=== PATIENT | female | born 1980 | race African-American/Black ===

== ENCOUNTER 2017-02-05 21:03 | Emergency (ER) | payer SELFPAY ==
[~2017-02-05] VITALS: Ht 165.1 cm; Wt 113.6 kg
[2017-02-05 21:45] LABS: BASOPHILS % 1.3 % (0.0-2.0); DIFFERENTIAL COMMENT 0; EOSINOPHILS % 2.6 % (0.0-5.0); HEMATOCRIT. 31.7 % (36.0-48.0); LYMPHOCYTES % 38.4 % (20.0-50.0); MEAN CORPUSCULAR HEMOGLOBIN 24.7 pg (28.0-32.0); MEAN CORPUSCULAR HGB CONC 31.6 g/dL (31.0-37.0); MEAN CORPUSCULAR VOLUME 78.1 fL (81.0-99.0); MONOCYTES % 8.4 % (2.0-8.0); NEUTROPHILS % 49.3 % (40.0-76.0); PLATELET 423 x1000/uL (130-400); RED BLOOD CELL COUNT 4.06 mill/uL (4.2-5.4)
[2017-02-05 21:59] LABS: ALANINE AMINOTRANSFERASE 20 IU/L (13-61); ALBUMIN 3.5 g/dL (3.4-5.0); ANION GAP 13; CALCIUM 8.9 mg/dL (8.5-10.1); CARBON DIOXIDE 26 mEq/L (21-32); CHLORIDE 108 mEq/L (98-107); INDEX HEMOLYSI 1 (1-3); INDEX ICTERIC 1 (1-4); INDEX LIPEMIC 1 (1-3); UREA NITROGEN BLOOD 16 mg/dL (7-21); eGFR 56 mL/min (>60)
[2017-02-05] MEDS ORDERED: ACETAMINOPHEN 500MG TABLET PO ONE (23:15)
[2017-02-05 23:26] LABS: PROTHROMBIN TIME 10.6 sec
[2017-02-05 23:54] LABS: CLARITY URINE CLOUDY (CLEAR); COLOR URINE ORANGE (YELLOW); GLUCOSE URINE NEGATIVE (NEGATIVE); KETONES URINE NEGATIVE (NEGATIVE); LEUKOCYTE ESTERASE URINE 1+ (NEGATIVE); NITRITE URINE NEGATIVE (NEGATIVE); OCCULT BLOOD URINE 3+ (NEGATIVE); PH URINE 5.5 (4.5-8.0); PROTEIN URINE 1+ (NEGATIVE); SPECIFIC GRAVITY URINE 1.031 (1.005-1.030)
[2017-02-05 23:59] LABS: HCG SCREEN POSITIVE
[2017-02-06 01:27] LABS: SQUAMOUS EPITHELIAL CELL URINE FEW /lpf (RARE/1+)
[2017-02-06 01:29] LABS: BACTERIA URINE TRACE; RBC URINE TNTC /hpf (0-2); WBC URINE 0-2 /hpf (0-2)
[2017-02-06 02:19] VITALS: BP 135/88
== END 2017-02-06 02:24 | disposition home or self-care (01) ==
LOC: ER 23:18
DX: D25.9 Leiomyoma of uterus, unspecified (principal); D72.829 Elevated white blood cell count, unspecified; D50.9 Iron deficiency anemia, unspecified; I10 Essential (primary) hypertension; F12.10 Cannabis abuse, uncomplicated; Z88.2 Allergy status to sulfonamides; Z97.5 Presence of (intrauterine) contraceptive device
CPT/HCPCS: 36415; 76830; 76856; 80053; 81001; 84702; 84703; 85025; 85610; 99285; Z7610

== ENCOUNTER 2017-10-14 07:57 | Emergency (ER) | payer MEDICAID ==
[~2017-10-14] VITALS: Ht 166.4 cm; Wt 122.0 kg
[2017-10-14] MEDS ORDERED: ONDANSETRON 4MG ODT PO ONE (12:00)
[2017-10-14] MEDS ORDERED: KETOROLAC 30MG/ML VIAL IM ONE (12:00)
[2017-10-14 12:28] LABS: BASOPHILS % 0.7 % (0.0-2.0); EOSINOPHILS % 1.9 % (0.0-5.0); HEMATOCRIT. 32.6 % (36.0-48.0); HEMOGLOBIN. 10.2 g/dL (12.0-16.0); MEAN CORPUSCULAR VOLUME 76.6 fL (81.0-99.0); MEAN PLATELET VOLUME 8.5 fl (7.4-10.4); MONOCYTES % 6.3 % (2.0-8.0); NEUTROPHILS % 69.1 % (40.0-76.0); PLATELET 361 x1000/uL (130-400); RED BLOOD CELL COUNT 4.26 mill/uL (4.2-5.4); RED CELL DISTRIBUTION WIDTH 17.1 % (11.6-14.6)
[2017-10-14 12:41] LABS: CARBON DIOXIDE 29 mEq/L (21-32); CHLORIDE 107 mEq/L (98-107)
[2017-10-14] MEDS ORDERED: ACETAMINOPHEN 325MG TABLET PO ONE (15:45)
[2017-10-14 16:02] VITALS: BP 156/90
== END 2017-10-14 16:10 | disposition home or self-care (01) ==
LOC: ER 09:12
DX: M25.462 Effusion, left knee (principal); M25.562 Pain in left knee; I10 Essential (primary) hypertension; F12.10 Cannabis abuse, uncomplicated; Z88.2 Allergy status to sulfonamides
CPT/HCPCS: 29505; 36415; 73562; 80053; 85025; 93970; 99285; J1885; Q0162; Z7610